=== PATIENT | male | born 1975 | race Caucasian/White ===

== ENCOUNTER 2021-03-12 07:42 | Emergency (ER) | payer OTHER ==
[~2021-03-12] VITALS: Ht 175.3 cm; Wt 88.0 kg
[~2021-03-12 07:42] MED LIST: ALPR.5 PO; AMOX500 PO; CEPH500 PO; CLON2 PO; CYCL10 PO; HYDACE5 PO; NAPR500 PO; OXYACE5T PO; OXYACE7.5T PO; PENVK500 PO; RXHYDACE PO; RXLORA1 PO; RXOXYACE PO; SULTRIDS PO
== END 2021-03-12 09:43 | disposition home or self-care (01) ==
LOC: ER 07:42
DX: S61.412A Laceration without foreign body of left hand, initial encounter (principal); F17.210 Nicotine dependence, cigarettes, uncomplicated; W26.0XXA Contact with knife, initial encounter
CPT/HCPCS: 12001; 99282-25; A9270

== ENCOUNTER 2021-11-25 04:31 | Emergency (ER) | payer SELFPAY ==
[~2021-11-25] VITALS: Ht 175.3 cm; Wt 79.4 kg
[2021-11-25 06:57] LABS: Creatine Kinase MB Index 1.1 (0.0-4.0)
[2021-11-25 08:04] LABS: BASOPHILS ABSOLUTE AUTO 0.06 K/mm3 (0.00-0.23); BASOPHILS PERCENT AUTO 1 % (0-2); EOSINOPHILS ABSOLUTE AUTO 0.04 K/mm3 (0.00-0.68); EOSINOPHILS PERCENT AUTO 0 % (0-6); Hematocrit 48.5 % (37.0-53.0); Hemoglobin 15.1 g/dL (13.5-17.5); IMMATURE GRAN ABSOLUTE AUTO 0.05 K/mm3 (0.00-0.10); IMMATURE GRAN PERCENT AUTO 1 % (0-1); LYMPHOCYTES ABSOLUTE AUTO 1.21 K/mm3 (0.84-5.20); LYMPHOCYTES PERCENT AUTO 11 % (21-46); MONOCYTES ABSOLUTE AUTO 0.33 K/mm3 (0.16-1.47); MONOCYTES PERCENT AUTO 3 % (4-13); Mean Corpuscular HGB 28.1 pg (26.0-34.0); Mean Corpuscular HGB Conc 31.1 g/dL (31.5-36.5); Mean Corpuscular Volume 90 fL (80-100); NEUTROPHILS ABSOLUTE AUTO 9.33 K/mm3 (1.96-9.15); NEUTROPHILS PERCENT AUTO 85 % (41-73); RDW Coefficient Variation 14.4 % (11.7-14.2); RDW Standard Deviation 47.5 fL (35.1-46.3); Red Blood Cell Count 5.37 M/mm3 (4.30-5.90); White Blood Cell Count 11.02 K/mm3 (4.00-11.30)
[2021-11-25 08:05] LABS: Source, Urine Clean Catch
[2021-11-25 08:09] LABS: Appearance, Urine Cloudy (Clear); Bilirubin, Urine Neg (Neg); Blood, Urine 5+ (Neg); Color, Urine Yellow (P-Yellow); Glucose Qualitative, Urine Neg (Neg); Ketones, Urine Neg (Neg); Leukocyte Esterase, Urine 1+ (Neg); Nitrite, Urine Neg (Neg); Protein, Urine 2+ (Neg); Specific Gravity, Urine 1.015 (1.003-1.022); Urobilinogen, Urine NORM (Normal)
[2021-11-25 08:11] LABS: Mean Platelet Volume 11.4 fL (9.1-12.4)
[2021-11-25 08:25] LABS: Albumin, Blood 3.6 g/dL (3.4-5.0); Albumin/Globulin Ratio 0.9 (0.8-1.8); Bilirubin, Total 0.2 mg/dL (0.1-1.0); Calcium, Blood 9.1 mg/dL (8.5-10.1); Creatinine, Blood 1.04 mg/dL (0.60-1.20); Globulin, Blood 4.1 g/dL (2.2-4.0); Potassium, Blood 4.2 mmol/L (3.5-5.5); Total Protein, Blood 7.7 g/dL (6.4-8.2)
[2021-11-25 08:34] LABS: Bacteria Many /hpf; Red Blood Cells, Urine TNTC /hpf (0-2); Squamous Epithelial Cells Not Seen /hpf (Few)
[2021-11-25 08:36] LABS: Amorphous Light (0-Heavy)
[2021-11-25] MEDS ORDERED: HYDR1TAB94 PO (08:45)
[2021-11-25] MEDS ORDERED: TAMS.4ER PO (08:45)
[2021-11-25] MEDS ORDERED: CEPH500 PO (08:45)
[2021-11-25 09:41] LABS: Platelet Count 230 K/mm3 (150-400)
== END 2021-11-25 08:54 | disposition home or self-care (01) ==
LOC: ER 04:31
PROVIDERS: Emergency Medicine
DX: N13.2 Hydronephrosis with renal and ureteral calculous obstruction (principal); F17.210 Nicotine dependence, cigarettes, uncomplicated; Z79.899 Other long term (current) drug therapy
CPT/HCPCS: 74176; 80053; 81001; 82550; 82553; 85025; J7030

== ENCOUNTER 2022-04-15 02:45 | Emergency (ER) | payer OTHER ==
[~2022-04-15] VITALS: Ht 175.3 cm; Wt 86.2 kg
[~2022-04-15 02:45] MED LIST changes: +HYDR1TAB94 PO; +ONDA4ODT MM; +OXAYDO5 M1 PO; +TAMS.4ER PO
[2022-04-15] MEDS ORDERED: Norco 5-325 Ta1 EACH PO (05:19)
== END 2022-04-15 06:09 | disposition home or self-care (01) ==
LOC: ER 02:45
DX: T25.122A Burn of first degree of left foot, initial encounter (principal); T25.121A Burn of first degree of right foot, initial encounter; X08.8XXA Exposure to other specified smoke, fire and flames, initial encounter; F17.210 Nicotine dependence, cigarettes, uncomplicated; Z79.899 Other long term (current) drug therapy
CPT/HCPCS: A9270; J1885

== ENCOUNTER 2022-05-13 20:41 | Emergency (ER) | payer OTHER ==
[~2022-05-13] VITALS: Ht 175.3 cm; Wt 86.2 kg
[~2022-05-13 20:41] MED LIST changes: +Norco 5-325 Ta1 EACH PO
== END 2022-05-13 22:42 | disposition left against medical advice (07) ==
LOC: ER 20:41
DX: M25.551 Pain in right hip (principal); M25.511 Pain in right shoulder; V19.9XXA Pedal cyclist (driver) (passenger) injured in unspecified traffic accident, initial encounter; Z53.21 Procedure and treatment not carried out due to patient leaving prior to being seen by health care provider
CPT/HCPCS: 72170

== ENCOUNTER 2024-04-16 22:14 | Emergency (ER) | payer OTHER ==
[~2024-04-16] VITALS: Ht 175.3 cm; Wt 77.1 kg
[2024-04-16 22:39] VITALS: BP 155/117
[2024-04-16] MEDS ORDERED: Trimethoprim/Sulfamethoxazole DS Tab PO ONE (22:55)
[2024-04-16] MEDS ORDERED: Ketorolac Tromethamine 30mg Vial IM ONE (22:55)
[2024-04-16] MEDS ORDERED: Bactrim Ds Tab1 EACH PO (22:56)
== END 2024-04-16 23:06 | disposition home or self-care (01) ==
LOC: ER 22:14
DX: L03.115 Cellulitis of right lower limb (principal); F17.210 Nicotine dependence, cigarettes, uncomplicated; F41.9 Anxiety disorder, unspecified; Z79.899 Other long term (current) drug therapy
CPT/HCPCS: 96372; 99282-25; A9270; J1885